=== PATIENT | female | born 1955 | race Caucasian/White ===

== ENCOUNTER → 2017-02-18 | Outpatient (CLI) | payer OTHER ==
--- NOTE | 2017-02-19 15:29 | RAD ---
EXAM DESCRIPTION: Wrist,Right 3 Views CLINICAL HISTORY: PAIN IN RIGHT WRIST COMPARISON: None. IMPRESSION: 3 views of the right wrist shows no evidence of acute fracture, focal bone destruction, or joint dislocation. Mild osteophytic changes of the first carpometacarpal joint are seen. Soft tissues are unremarkable. Electronically signed by: Levon Musa MD 02/19/2017 3:27 PM CDT
--- NOTE | 2017-02-19 15:29 | RAD ---
EXAM DESCRIPTION: Wrist,Left 3 Views CLINICAL HISTORY: PAIN IN LEFT WRIST COMPARISON: None. IMPRESSION: 3 views of the left wrist show no evidence of acute fracture, focal bone destruction, or joint dislocation. There is severe joint space narrowing with mild joint line osteophytes at the first carpometacarpal joint. Moderate sclerotic changes at the articulation with subcortical cystic changes are seen. 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 Electronically signed by: Levon Musa MD 02/19/2017 3:28 PM CDT
== END ==
LOC: RAD 13:24
PROVIDERS: ATTEND Orthopaedic Surgery
DX: M25.531 Pain in right wrist (principal); M25.532 Pain in left wrist

== ENCOUNTER → 2018-04-06 | Outpatient (CLI) | payer OTHER | LOC: GMAL 10:33 | PROVIDERS: ATTEND Family Medicine | DX: Z00.00 Encounter for general adult medical examination without abnormal findings (principal) ==

== ENCOUNTER → 2018-07-08 | Outpatient (CLI) | payer OTHER ==
--- NOTE | 2018-07-09 11:32 | MRI ---
EXAM DESCRIPTION: Lumbar Spine w/o Contrast : Magnetic Resonance Imaging. CLINICAL HISTORY: BACK PAIN COMPARISON: MRI scan cervical spine on the same visit. TECHNIQUE: Multiplanar, multiple standard sequences, non contrast MRI, lumbar spine. FINDINGS: L5-S1: Disc desiccation and minimal disc space loss. Tiny posterior midline bulge. Mild arthrosis left facet joint. Bilateral mild foraminal narrowing. Type II Modic endplate changes inferior L5. Mild canal narrowing. L4-L5: Disc desiccation and minimal disc space loss. Anterior endplate irregularities and Schmorl's nodes inferior L4 and superior L5. Predominantly midline and right lateral endplates. Minimal depression of the anterior superior L5 endplate. Minimal marrow edema abutting the L4 and L5 endplates. Edema in the anterior disc. No soft tissue mass or edema anterior to the disc space. Grade 1 anterolisthesis 1.5 mm. No posterior disc bulging but minimal bulging bilaterally into the foramina more on the right with minimal to moderate narrowing and no narrowing on the left. Right posterior bulging disc abutting the exiting right L4 nerve. Mild flavum ligament hypertrophy with facet joint negative. L3-4: Minimal disc desiccation. Disc space preserved with no significant bulging into the canal, but minimal bulge with bright T2 annular fissure encroaching on the left foramen and abutting the exiting left L3 nerve. Right foramen is patent. Minimal hypertrophy of the flavum ligaments and mild canal narrowing. L2-3: Disc space preserved with no significant bulging. Minimal desiccation. Mild left foraminal narrowing with right foramen patent. Canal is patent. Minimal arthrosis of the right facet joint. L1-2: Normal signal in the disc with disc space preserved. Tiny posterior bulge. Posterior elements unremarkable. Canal and foramina are patent. T12-L1: Normal signal in the disc with disc space preserved. No bulging. Posterior elements unremarkable. Conus terminates at this level. L2-L4 levoscoliosis. Paravertebral soft tissues negative.. Normal marrow signal in the remaining vertebral bodies and the posterior elements. Vertebral bodies are not compressed at other levels, except possibly anterior L4-5 endplates. IMPRESSION: 1. Acute spondylosis with endplate erosion and underlying marrow edema anterior L4-5 also involving the left lateral endplates. Minimal depression of the anterior superior L5 endplate. Edema in the disc. These findings could represent early discitis or early compression injury of the anterior superior right L5 endplate. No posterior bulging. Trace anterolisthesis. Consider follow-up study with gadolinium IV contrast. Right posterior bulge of the disc possibly abutting the exiting right L4 nerve. Correlate for right L4 radiculopathy. 2. Moderate spondylosis inferior L5 endplate. Minimal disc space loss. 3. L3-4 disc bulge into the left foramen with annular fissure abutting the exiting left L3 nerve. Correlate for left L3 radiculopathy. Electronically signed by: Mariusz Yeung MD 07/09/2018 11:31 AM [facility]
--- NOTE | 2018-07-09 11:59 | MRI ---
EXAM DESCRIPTION: Cervical Spine: MRI. CLINICAL HISTORY: 62 years Female NECK PAIN COMPARISON: MRI lumbar spine on this visit. TECHNIQUE: Multiplanar, high-field MRI, multiple sequences, non-contrast Cervical spine. FINDINGS: C3-C4: Trace retrolisthesis. Disc desiccation with posterior bulge in the midline into the right of midline. Mild canal narrowing. Right uncinate spur and mild neural foraminal narrowing. Minimal left facet joint arthrosis. Moderate arthrosis right facet joint with joint space widening and effusion, soft tissue edema, and marrow edema in the facets. C4-5: Disc desiccation minimal posterior bulge. Mild canal narrowing. Bilateral neural foramina are patent and bilateral facet joints unremarkable. C5-6: Minimal disc desiccation posteriorly and disc space loss. Trace retrolisthesis. Posterior disc osteophyte complex bulge abutting the cord. Bilateral uncinate spurs. Mild right neural foraminal narrowing and moderate to severe left neural foraminal narrowing. Posterior ligament hypertrophy and moderate canal narrowing. C6-7: Disc desiccation and minimal disc space loss. Posterior ligament hypertrophy. Left uncinate spur and posterior disc bulge. Moderate left neural foraminal narrowing with right neuroforamen patent. Normal signal in the remaining discs with no bulging. Disc spaces preserved. Canal and neural foramina are patent. Facets joints are unremarkable. Spinal alignment anatomic. No cord compression or cord edema. Atlantoaxial joint minimal posterior soft tissue hypertrophy.. Base of the cerebellar tonsils is above the foramen magnum. Paravertebral soft tissues unremarkable except as described above.. Vertebral bodies are not compressed at any level. Otherwise normal marrow signal in the remaining vertebral bodies and the posterior elements. IMPRESSION: 1. Acute inflammation in the right C3-4 facet joint with joint effusion, marrow edema in the facets, and surrounding soft tissue edema. Posterior bulge of the disc abutting the cord with mild canal narrowing. Mild right neural foraminal narrowing. 2. Trace retrolisthesis C5-C6. Posterior disc osteophyte complex bulging and abutting the cord. Moderate to severe left neural foraminal narrowing. Correlate for left C6 radiculopathy. 3. Moderate left neural foraminal narrowing at C6-7 with left uncinate spur. Minimal disc space loss and disc desiccation. Electronically signed by: Mariusz Yeung MD 07/09/2018 11:58 AM [facility]
== END ==
LOC: MRI 13:00
PROVIDERS: ATTEND Physician Assistant
DX: M50.122 Cervical disc disorder at C5-C6 level with radiculopathy (principal); M50.123 Cervical disc disorder at C6-C7 level with radiculopathy; M50.11 Cervical disc disorder with radiculopathy, high cervical region; M47.896 Other spondylosis, lumbar region; M51.86 Other intervertebral disc disorders, lumbar region; M25.48 Effusion, other site

== ENCOUNTER → 2018-11-29 | Outpatient (CLI) | payer OTHER, MEDICARE | LOC: GMAL 15:19 | PROVIDERS: ATTEND Family Medicine | DX: M06.9 Rheumatoid arthritis, unspecified (principal); R79.82 Elevated C-reactive protein (CRP); R70.0 Elevated erythrocyte sedimentation rate ==

== ENCOUNTER → 2019-02-22 | Outpatient (CLI) | payer OTHER, MEDICARE | LOC: GMAL 23:28 | PROVIDERS: ATTEND Family Medicine | DX: D63.8 Anemia in other chronic diseases classified elsewhere (principal); Z79.899 Other long term (current) drug therapy ==

== ENCOUNTER → 2019-06-02 | Outpatient (CLI) | payer MEDICARE | LOC: GMAL 10:48 | PROVIDERS: ATTEND Family Medicine | DX: D51.3 Other dietary vitamin B12 deficiency anemia (principal); D63.8 Anemia in other chronic diseases classified elsewhere; E55.9 Vitamin D deficiency, unspecified; N18.9 Chronic kidney disease, unspecified; Z79.899 Other long term (current) drug therapy ==

== ENCOUNTER 2019-06-15 13:51 | Outpatient (CLI) | payer MEDICARE ==
[~2019-06-15 13:51] MED LIST: CYANOCOBALAMIN INJ 1,000 MCG/ML INJ IM SCH; IRON DEXTRAN IVPB SCH; SODIUM CHLORIDE 0.9% IVPB SCH
[2019-06-15] MEDS ORDERED: SODIUM CHLORIDE 0.9% IVPB ONE ×2 (14:00)
[2019-06-15] MEDS ORDERED: IRON DEXTRAN IVPB SCH (14:00)
[2019-06-15] MEDS ORDERED: CYANOCOBALAMIN INJ 1,000 MCG/ML INJ IM ONE (14:00)
[2019-06-15] MEDS ORDERED: SODIUM CHLORIDE 0.9% IVPB SCH (14:00)
[2019-06-15] MEDS ORDERED: IRON DEXTRAN IVPB ONE ×2 (14:00)
== END 2019-06-28 23:59 ==
LOC: INFRM 13:51
PROVIDERS: ATTEND Family Medicine
DX: N18.4 Chronic kidney disease, stage 4 (severe) (principal); D63.8 Anemia in other chronic diseases classified elsewhere; D50.9 Iron deficiency anemia, unspecified; D51.0 Vitamin B12 deficiency anemia due to intrinsic factor deficiency
CPT/HCPCS: 96365; 96366; 96372; A4216; J1750; J3420; J7040

== ENCOUNTER → 2019-06-30 | Outpatient (CLI) | payer OTHER | LOC: GMAL 10:26 | PROVIDERS: ATTEND Family Medicine | DX: D51.3 Other dietary vitamin B12 deficiency anemia (principal); N18.4 Chronic kidney disease, stage 4 (severe); D50.8 Other iron deficiency anemias ==

== ENCOUNTER → 2019-12-22 | Outpatient (CLI) | payer MEDICARE | LOC: GMAL 10:20 | PROVIDERS: ATTEND Family Medicine | DX: D50.8 Other iron deficiency anemias (principal); I10 Essential (primary) hypertension; Z79.899 Other long term (current) drug therapy ==

== ENCOUNTER 2020-01-21 19:29 | Emergency (ER) | payer MEDICARE, OTHER ==
[2020-01-21 19:48] VITALS: TEMP 97.8
[2020-01-21] MEDS ORDERED: SODIUM CHLORIDE 0.9% 1000ML 1,000 ML IVS ONE (19:49)
--- NOTE | 2020-01-21 19:53 | ED.PDOC ---
History of Present Illness - General Chief Complaint: Abdominal Pain Stated Complaint: my stomach hurts so bad Time Seen by Provider: 01/21/20 19:48 Additional Information: Patient is a 64-year-old female who presents to the ED with chief complaint of abdominal pain. Patient indicates her pain is mostly lower and has been on and off for the past week. Patient had an acute exacerbation today which caused her to come to the ED however she is essentially pain-free at this moment. Patient vomited 6 days ago but since then has had nausea only. However, she indicates that when she eats that brings on the pain and so she is had only minimal p.o. intake for the past week and she is feeling weak and dehydrated. Patient's past surgical history is significant for C-sections. She denies history of similar abdominal symptoms and she denies history of irritable bowel syndrome or inflammatory bowel disease. When she gets the pain she describes it as a sharp pain, 7/10 in intensity. Review of Systems - Review of Systems Constitutional: States: weakness. Denies: chills, fever EENTM: States: no symptoms reported Respiratory: States: no symptoms reported. Denies: cough, short of breath Cardiology: States: no symptoms reported. Denies: chest pain, palpitations Gastrointestinal/Abdominal: States: see HPI, abdominal pain, nausea, vomiting. Denies: diarrhea Genitourinary: Denies: dysuria, frequency Musculoskeletal: Denies: muscle pain Neurological: States: no symptoms reported All other Systems: Reviewed and Negative Past Medical History (General) - Patient Medical History Hx Seizures: No Hx Stroke: No Hx Dementia: No Hx Asthma: No Hx of COPD: No Hx Cardiac Disorders: No Hx Congestive Heart Failure: Yes Hx Pacemaker: No Hx Hypertension: Yes Hx Thyroid Disease: No Hx Diabetes: No Hx Gastroesophageal Reflux: No Hx Renal Disease: Yes Hx Cancer: No Hx of HIV: No Hx Hepatitis C: No Hx MRSA: No - Vaccination History Hx Tetanus, Diphtheria Vaccination: No Hx Influenza Vaccination: Yes Hx Pneumococcal Vaccination: No Immunizations Up to Date: No - Social History Hx Tobacco Use: No Hx Alcohol Use: No Hx Substance Use: No Hx Substance Use Treatment: No Hx Depression: No - Female History Patient is a Female of Child Bearing Age (10 -59 yrs old): No Patient : No Family Medical History - Family History Mother Family History: Unknown Physical Exam - Physical Exam General Appearance: Alert, Comfortable, Frail, No apparent distress, Well Developed Neck: supple Respiratory: chest non-tender, lungs clear, normal breath sounds, no respiratory distress, no accessory muscle use Cardiovascular/Chest: normal peripheral pulses, no edema, no gallop, no JVD, no murmur, tachycardia Gastrointestinal/Abdominal: normal bowel sounds, soft, tenderness - Mild diffuse Back Exam: normal inspection, no CVA tenderness Extremity: normal range of motion, normal inspection, no pedal edema 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 01/21/20 21:16 Patient reexamined and she remains feeling well. Patient's labs are baseline for her including her creatinine (patient has known chronic renal insufficie ncy). Patient CT shows diffuse mild colitis. I discussed with patient observation versus outpatient treatment and patient requests trial of the latter. I will give the Cipro and Flagyl in the ED and discharged with a prescription for both and patient to follow-up with her PCP on Thursday. I specifically discussed with patient returning to the ED if her symptoms worsen to include worsening abdominal pain, vomiting and diarrhea. Vital signs stable, patient is NAD and looks clinically well and I believe is safe for discharge with outpatient follow-up. Follow-up instructions, discharge instructions and return to ED precautions discussed with patient. Patient voices understanding and willingness to comply with instructions. All laboratory and radiographic results have been discussed with the patient, and all questions answered. Patient is happy with plan. - Results/Orders Results/Orders: 01/21/20 19:48 IV:Start .ONCE 01/21/20 19:50 Hold Metformin x 48Hrs [id number] Laboratory Results - last 24 hr 01/21/20 01/21/20 01/21/20 20:08 20:08 20:08 WBC 7.1 RBC 4.55 Hgb 13.4 Hct 41.1 MCV 90.4 MCH 29.5 MCHC 32.6 L RDW 16.1 H Plt Count 385 MPV 7.8 Absolute Neuts (auto) 4.60 Absolute Lymphs (auto) 1.90 Absolute Monos (auto) 0.40 Absolute Eos (auto) 0.10 Absolute Basos (auto) 0.10 Neutrophils % 63.9 Lymphocytes % 26.5 Monocytes % 6.3 Eosinophils % 1.7 Basophils % 1.6 Sodium 137 Potassium 4.0 Chloride 101 Carbon Dioxide 22 Anion Gap 18.0 BUN 65 H Creatinine 2.66 H BUN/Creatinine Ratio 24.4 H Random Glucose 107 H Serum Osmolality 293.0 Lactic Acid 1.2 Calcium 8.9 Total Bilirubin 0.6 AST 21 ALT 10 Alkaline Phosphatase 89 Serum Total Protein 7.3 Albumin 3.7 Globulin 3.6 H Albumin/Globulin Ratio 1.0 L Lipase 151 H Urine Color Urine Appearance Urine pH Ur Specific [place] Urine Protein Urine Glucose (UA) Urine Ketones Urine Blood Urine Nitrite Urine Bilirubin Urine Urobilinogen Ur Leukocyte Esterase Urine RBC Urine WBC Ur Epithelial Cells Urine Bacteria 01/21/20 20:52 WBC RBC Hgb Hct MCV MCH MCHC RDW Plt Count MPV Absolute Neuts (auto) Absolute Lymphs (auto) Absolute Monos (auto) Absolute Eos (auto) Absolute Basos (auto) Neutrophils % Lymphocytes % Monocytes % Eosinophils % Basophils % Sodium Potassium Chloride Carbon Dioxide Anion Gap BUN Creatinine BUN/Creatinine Ratio Random Glucose Serum Osmolality Lactic Acid Calcium Total Bilirubin AST ALT Alkaline Phosphatase Serum Total Protein Albumin Globulin Albumin/Globulin Ratio Lipase Urine Color Yellow Urine Appearance Clear Urine pH 5.5 Ur Specific [place] 1.015 Urine Protein Negative Urine Glucose (UA) Negative Urine Ketones Negative Urine Blood Negative Urine Nitrite Negative Urine Bilirubin Negative Urine Urobilinogen 0.2 Ur Leukocyte Esterase Negative Urine RBC 0 Urine WBC 0 Ur Epithelial Cells 0 Urine Bacteria 0 Departure - Departure Clinical Impression: Acute colitis Time of Disposition: 21:18 Disposition: Discharge to Home or Self Care Condition: Fair Departure Forms: ED Discharge - Pt. Copy, Patient Portal Self Enrollment Instructions: DI for Abdominal Pain-Adult, Colitis Activity: increase activity as tolerated Referrals: Anival nA III, MD [Primary Care Provider] - 1-5 Days Prescriptions: Dicyclomine HCl [Bentyl] 20 mg PO Q8H PRN #20 tab PRN Reason: Abdominal Cramping Ciprofloxacin HCl [Cipro] 500 mg PO BID #20 tab metroNIDAZOLE [Flagyl] 500 mg PO Q8H #21 tab Home Medications: Ambulatory Orders Amlodipine Besylate 5 mg PO DAILY 01/21/20 Amphetamine-Dextroamphetamine [Adderall] 1 tab PO DAILY 01/21/20 BuPROPion XL [Wellbutrin XL] 2 tablet PO DAILY 01/21/20 BuPROPion XL [Wellbutrin XL] 150 mg PO DAILY 01/21/20 Carvedilol 3.125 mg PO DAILY 01/21/20 Cholecalciferol [D3 High Potency] 5,000 unit PO ELYSE-OTH-DAY 01/21/20 Ciprofloxacin HCl [Cipro] 500 mg PO BID #20 tab 01/21/20 Cyanocobalamin Inj [Vitamin B-12 Inj] 1,000 mcg IM MONTHLY 01/21/20 Dicyclomine HCl [Bentyl] 20 mg PO Q8H PRN #20 tab 01/21/20 Epoetin Obey [Procrit] 40,000 unit IJ MONTHLY 01/21/20 Furosemide [Lasix] 20 mg PO DAILY 01/21/20 HYDROcodone 10MG/APAP 325MG [[place] 10/325] 10 mg PO DAILY 01/21/20 Lisinopril 2.5 mg PO DAILY 01/21/20 Potassium Chloride [Potassium Chloride ER] 20 meq PO DAILY 01/21/20 metroNIDAZOLE [Flagyl] 500 mg PO Q8H #21 tab 01/21/20
--- NOTE | 2020-01-21 21:06 | CT ---
CT ABDOMEN PELVIS WITHOUT IV CONTRAST HISTORY: Abdominal pain. COMPARISON: None. TECHNIQUE: CT scan of the abdomen and pelvis was performed without IV contrast. This exam was performed according to our departmental dose-optimization program, which includes automated exposure control, adjustment of the mA and/or kV according to patient size and/or use of iterative reconstruction technique. FINDINGS: The lung bases are clear. No pleural or pericardial effusions. There is no hiatal hernia. The gallbladder is contracted, limiting evaluation. There are scattered cysts throughout the left hepatic lobe. Spleen, pancreas, and adrenal glands are unremarkable. The kidneys are atrophic but without hydronephrosis or urinary stones identified. There are multiple surgical clips in the pelvis. There is diffuse circumferential wall thickening involving the descending colon with mild surrounding inflammatory changes. There is a moderate amount stool throughout the colon, most prominent in the transverse colon with mild wall thickening. No free air or free fluid is seen. There is no evidence of small bowel obstruction or acute appendicitis. There is focal degenerative disc disease at L4-L5 with endplate erosive changes. No abnormal hernia is seen. The aorta is normal caliber and contains atherosclerotic calcifications. IMPRESSION: Acute colitis involving the proximal colon which may be infectious or inflammatory in origin. Electronically signed by: Chucky Gama MD 01/21/2020 9:05 PM CDT
[2020-01-21] MEDS ORDERED: CIPROFLOXACIN 500 MG TAB (ER DISPENSE) PO ONE (21:15)
[2020-01-21] MEDS ORDERED: metroNIDAZOLE 500 MG TAB PO ONE (21:16)
[2020-01-21 21:32] VITALS: BP 111/72
[2020-01-21 21:33] VITALS: O2SAT 99
== END 2020-01-21 21:42 | disposition home or self-care (01) ==
LOC: ER 19:29
DX: K52.9 Noninfective gastroenteritis and colitis, unspecified (principal); I13.0 Hypertensive heart and chronic kidney disease with heart failure and stage 1 through stage 4 chronic kidney disease, or unspecified chronic kidney disease; N18.9 Chronic kidney disease, unspecified; I50.9 Heart failure, unspecified; Z79.899 Other long term (current) drug therapy
CPT/HCPCS: 74176; 80053; 81001; 83605; 83690; 85025; J7030

== ENCOUNTER → 2020-03-20 | Outpatient (CLI) | payer OTHER | LOC: GMAL 10:44 | PROVIDERS: ATTEND Family Medicine | DX: D50.8 Other iron deficiency anemias (principal); Z79.899 Other long term (current) drug therapy ==

== ENCOUNTER → 2020-06-18 | Outpatient (CLI) | payer OTHER | LOC: GMAL 10:56 | PROVIDERS: ATTEND Family Medicine | DX: D50.8 Other iron deficiency anemias (principal); I10 Essential (primary) hypertension; Z79.899 Other long term (current) drug therapy ==